=== PATIENT | female | born 1980 | race Caucasian/White ===

== ENCOUNTER → 2017-01-12 | Outpatient (CLI) | payer MEDICAID, OTHER ==
[~2017-01-12] MED LIST: CENTTAB9 PO; CLON1 PO; DEPA500T PO; FIORINAL2 PO; FLEX10TA PO; NAPR550 PO; TEMA15 PO; Z.0.BCPILL PO
--- NOTE | 2017-01-12 15:58 | RADRPT ---
EXAM DATE/TIME: 01/12/2017 15:01 [facility] COMPARISON: No previous studies available for comparison. INDICATIONS : Lower back pain for 7 months with no known trauma MEDICAL HISTORY : None. SURGICAL HISTORY : None. ENCOUNTER: Initial ACUITY: 7 - 11 months PAIN SCORE: 7/10 LOCATION: Lumbar spine FINDINGS: There are five non-rib bearing vertebral bodies. The vertebral bodies are in normal alignment withou t evidence of subluxation or scoliosis. The disc spaces are maintained. The posterior elements are intact without evidence of spondylolysis. The pedicles are intact. Bony mineralization is normal. No fracture is identified. There is mild scoliosis. CONCLUSION: Mild scoliosis with no underlying bony abnormality. Truong Shah MD on January 12, 2017 at 15:55 Board Certified Radiologist. This report was verified electronically.
== END ==
LOC: HRAD 14:31
PROVIDERS: ATTEND General Practice
DX: M54.5 Low back pain (principal)
CPT/HCPCS: 72110

== ENCOUNTER → 2017-01-19 | Outpatient (CLI) | payer OTHER ==
--- NOTE | 2017-01-19 13:13 | RADRPT ---
EXAM DATE/TIME: 01/19/2017 09:50 [facility] COMPARISON: No previous studies available for comparison. INDICATIONS : Pelvic pains. MEDICAL HISTORY : Pelvic pains. Blind. SURGICAL HISTORY : Eye surgeries. ENCOUNTER: Initial ACUITY: 1 month PAIN SCORE: 0/10 LOCATION: Bilateral pelvis MEASUREMENTS: UTERUS: 6.7 x 5.6 x 3.1 cm ENDOMETRIAL STRIPE: 4 mm RIGHT OVARY: 3.3 x 2.5 x 1.7 cm LEFT OVARY: 3.6 x 2.0 x 1.9 cm FINDINGS: UTERUS: The myometrium has homogeneous echotexture without mass. RIGHT OVARY: Ovary contains no mass. Normal blood flow seen. Small simple cysts are seen. Largest measures 1.4 cm. LEFT OVARY: Ovary contains no mass. Normal blood flow seen. Small simple cysts are seen. Largest measures 1.2 cm. MISCELLANEOUS: No free fluid. CONCLUSION: Small simple ovarian cysts. No acute abnormality. Tylor Molina Jr., MD on January 19, 2017 at 13:04 Board Certified Radiologist. This report was verified electronically.
== END ==
LOC: HRAD 09:26
PROVIDERS: ATTEND Obstetrics & Gynecology Gynecologic Oncology
DX: R10.2 Pelvic and perineal pain (principal)
CPT/HCPCS: 76830; 76856; 93975